=== PATIENT | female | born 1965 ===

== ENCOUNTER → 2018-02-28 18:57 | Outpatient (REF) | payer BC, SELFPAY | LOC: LAB 18:57 | PROVIDERS: Visit Provider Nurse Practitioner Acute Care | DX: Z11.3 Encounter for screening for infections with a predominantly sexual mode of transmission (principal) | CPT/HCPCS: 87070; 87077; 87086; 87147; 87186; 87205 ==

== ENCOUNTER → 2018-03-01 19:35 | Outpatient (REF) | payer BC, SELFPAY ==
[2018-03-03 16:03] LABS: Urine N gonorrhoeae NOT DETECTED
[2018-03-03 17:29] LABS: Urine Chlamydia NOT DETECTED
== END ==
LOC: LAB 19:35
PROVIDERS: Visit Provider Nurse Practitioner Acute Care
DX: R60.9 Edema, unspecified (principal); N95.1 Menopausal and female climacteric states
CPT/HCPCS: 87070; 87075; 87077; 87147; 87186; 87205; 87255; 87491; 87591; 87624; 88142